=== PATIENT | male | born 1975 | race African-American/Black ===

== ENCOUNTER 2019-10-23 13:44 | Emergency (ER) | payer SELFPAY ==
[2019-10-23] MEDS ORDERED: Adacel (T-DAP) 0.5 ML SYRINGE ONE (14:36)
[2019-10-23] MEDS ORDERED: Silver Sulfadiazine 50 GM TUBE ONE (15:03)
== END 2019-10-23 15:25 | disposition home or self-care (01) ==
LOC: ERS 13:44 → EDBD 13:44 → ERS 15:25
DX: S40.212A Abrasion of left shoulder, initial encounter (principal); S50.312A Abrasion of left elbow, initial encounter; S60.511A Abrasion of right hand, initial encounter; F41.9 Anxiety disorder, unspecified; F17.210 Nicotine dependence, cigarettes, uncomplicated; V89.2XXA Person injured in unspecified motor-vehicle accident, traffic, initial encounter
CPT/HCPCS: 90471; 90715; G0390